=== PATIENT | female | born 1950 | race Caucasian/White ===

== ENCOUNTER → 2020-08-30 08:29 | Outpatient (BNVA) | payer MEDICARE, SELFPAY | PROVIDERS: PCP Internal Medicine; Visit Provider Hospitalist | DX: J44.9 Chronic obstructive pulmonary disease, unspecified (principal); K44.9 Diaphragmatic hernia without obstruction or gangrene; R91.8 Other nonspecific abnormal finding of lung field | CPT/HCPCS: 99202 ==

== ENCOUNTER 2020-09-20 09:31 | Outpatient (REF) | payer MEDICARE, SELFPAY ==
--- NOTE | ~2020-09-20 | CT_ITS ---
EXAMINATION: CT CHEST SCREENING CLINICAL INFORMATION: Personal history of nicotine dependence. COMPARISON: None. TECHNIQUE: Multidetector volumetric CT imaging of the chest is performed without contrast using low-dose technique. Additional 2-D coronal and sagittal reformatted images and axial 3-D maximum intensity projection (MIP) images are generated on the CT workstation. This CT examination was performed using dose optimization techniques as appropriate, variously including the following: *Automated exposure control *Adjustment of mA and/or kV according to patient size (this includes techniques or standardized protocols for targeted exams where dose is matched to indication/reason for exam; i.e. extremities or head) *Use of iterative reconstruction technique DLP: 47 mGy-cm FINDINGS: LUNGS: The lungs are well expanded and clear of acute pneumonic process. There is a 2 mm calcified nodule right upper lobe axial image 141/5. No additional nodules seen. There is patchy ground-glass opacity both lower lobes and right lower lobe. MEDIASTINUM: The thyroid lobes are symmetrical and normal. The central trachea and bronchi are widely patent. Heart size and the great vessels are normal caliber. There is atherosclerotic calcification of the aortic arch. No abnormal sized mediastinal or hilar lymph nodes seen. There is no pericardial effusion. PLEURA: There is no pleural effusion. No pleural mass or thickening. AXILLA: No lymphadenopathy. UPPER ABDOMEN: Visualized liver, spleen, pancreas, and bilateral adrenal glands are unremarkable. The gallbladder has been surgically removed. OSSEOUS STRUCTURES: Mild degenerative ventral spondylosis. No lytic or sclerotic process. CT/CT lung screening IMPRESSION: Unremarkable examination. ASSESSMENT: Lung-RADS category 2: Benign. RECOMMENDATION: Low-dose annual CT chest.
== END 2020-09-20 09:32 | disposition home or self-care (01) ==
LOC: HO.CT 09:31
PROVIDERS: Visit Provider Physician Assistant Medical
DX: Z12.2 Encounter for screening for malignant neoplasm of respiratory organs (principal); Z87.891 Personal history of nicotine dependence
CPT/HCPCS: 71271

== ENCOUNTER 2020-10-15 10:52 | Outpatient (REF) | payer MEDICARE, SELFPAY ==
--- NOTE | 2020-10-15 14:36 | PFT_ITS ---
Forced vital capacity, FEV1, LNG18-05 are normal. MVV is slightly decreased. Post bronchodilator therapy, there is a significant increase in HWM93-76. No other change. Total lung capacity and residual volume are slightly decreased. Diffusion capacity slightly decreased. CONCLUSION: Mild restrictive pulmonary disorder. No significant obstructive disorder, but there is an accelerated response to bronchodilator therapy as shown by increased DRK51-25. This may indicate a mild bronchospastic component. Clinical correlation is recommended. Jasmin Cleveland MD MSHa[facility]/MOD[facility] / [id number]
== END 2020-10-15 10:53 | disposition home or self-care (01) ==
LOC: HO.RESP 10:52
PROVIDERS: PCP Internal Medicine; Visit Provider Hospitalist
DX: J44.9 Chronic obstructive pulmonary disease, unspecified (principal)
CPT/HCPCS: 94060; 94727; 94729

== ENCOUNTER → 2020-11-11 10:15 | Outpatient (BNVA) | payer MEDICARE, SELFPAY | PROVIDERS: PCP Internal Medicine; Visit Provider Hospitalist | DX: J44.9 Chronic obstructive pulmonary disease, unspecified (principal); K44.9 Diaphragmatic hernia without obstruction or gangrene; J98.4 Other disorders of lung; R91.8 Other nonspecific abnormal finding of lung field | CPT/HCPCS: 99212 ==

== ENCOUNTER → 2021-02-24 09:42 | Outpatient (BNVA) | payer MEDICARE, SELFPAY | PROVIDERS: PCP Internal Medicine; Visit Provider Hospitalist | DX: J44.9 Chronic obstructive pulmonary disease, unspecified (principal); R91.8 Other nonspecific abnormal finding of lung field; J98.4 Other disorders of lung; Z87.891 Personal history of nicotine dependence | CPT/HCPCS: 99212 ==

== ENCOUNTER 2024-08-26 12:21 | Outpatient (AMB) | payer MEDICARE, MEDICAID, SELFPAY ==
--- NOTE | 2024-08-26 12:35 | A.OFFVIS_ITS ---
Intake Visit Reasons: 6m AD Allergies morphine Allergy (Severe, Verified 02/24/21 10:02) hallucination HPI Comments Details: 74 years old woman probably with dementia probably with Lewy bodies. In some ways she was better with medicines but she also was having difficulty walking. She had bilateral knee replacement and was also complaining of pain. Bladder control is ok. Sometimes she was having hallucinations. [facility] Medical History (Updated 08/26/24 @ 12:40 by Erinn Parisi MD) GERD (gastroesophageal reflux disease) Dementia with Lewy bodies Alzheimer's dementia Chronic restrictive lung disease Shoulder pain Neck pain COVID-19 Hiatal hernia Pulmonary nodules Asthma-COPD overlap syndrome Family History (Updated 08/30/20 @ 20:01 by Joshua Marcelo MD) Other HTN (hypertension) Social History (Updated 08/30/20 @ 08:40 by Leana Johnson [facility]) Patient Tobacco Use Status: Former Tobacco user Tobacco use type: Cigarette Years Smoked: 15 years Review of Systems Const Details: Constitutional:?No fever, chills, fatigue, weight loss, or night sweats. HEENT:?No headache, vision changes, hearing loss, nasal congestion, sore throat. Neurological:? Hallucinations and difficulty walking Psychiatric:? Complaining of hallucinations Endocrine:?No heat/cold intolerance, polydipsia, polyuria, or hair/skin changes. Hematologic/Lymphatic:?No easy bruising, bleeding, or lymphadenopathy. Integumentary (Skin):?No rash, lesions, itching, or color changes. ? Physical Exam Neuro Other: Mental Status: Alert and oriented to person, place, and time. Normal attention. Normal spontaneous speech, fluency, and comprehension. No obvious issues with mood and memory. Affect is appropriate. Cranial Nerves: CN II: Visual carney full to confrontation, visual acuity intact. CN III, IV, : Pupils equal, round, reactive to light and accommodation. Extraocular movements are normal. CN V: Facial sensation is normal. CN VII: Facial movements symmetrical. CN VIII: Hearing intact to bedside conversation is normal. CN IX, X: Palate elevates symmetrically. CN XI: Shoulder shrug and head turn symmetrical. CN XII: Tongue midline without atrophy or fasciculations. Slow and cautious walking with a cane. Extrapyramidal: Full facial expressions and blinking. No rigidity. Movements are appropriate with no tremor or abnormality. Speech: Normal; no dysarthria or tremor. Assessment & Plan Assessment & Plan (1) Dementia with Lewy bodies: Code(s): G31.83 - Neurocognitive disorder with Lewy bodies; F02.80 - Dementia in other diseases classified elsewhere, unspecified severity, without behavioral disturbance, psychotic disturbance, mood disturbance, and anxiety Category: Medical Qualifiers: Dementia severity: moderate Dementia behavioral or psychological symptom: with mood disturbance Qualified Code(s): G31.83 - Neurocognitive disorder with Lewy bodies; F02.B3 - Dementia in other diseases classified elsewhere, moderate, with mood disturbance Plan Impression: Dementia with Lewy body disease Recommendations: 1. Memantine 5 mg twice a day 2. Sertraline 25 mg a day 3. Quetiapine 25 mg to twice a day 4. Trazodone 50 mg 1 at bedtime 4. Try to use a walker Coding Level of Care Code Est Pt Level 4 (48541) Diagnoses Moderate Lewy body dementia with mood disturbance G31.83; F02.B3 Dementia severity: moderate Dementia behavioral or psychological symptom: with mood disturbance
--- OUTSIDE RECORDS SUMMARY | 2024-08-26 13:31 | XMS_ITS | Patient Health Record ---
[facility] Address [address] [place] [address] Care Team Providers Care Reclamation Supervisor Name Role Phone Carina MONTEJO, [facility] Primary Care Provider Unavailab Glenn Lucero Unavailable [phone] Allergies Allergen (clinical drug ingredient) Drug/Non Drug Allergy documented on EMR Reaction Allergy Type Onset Date Status Codeine Phosphate Unknown Drug Allergy Active morphine Morphine Sulfate Unknown Drug Allergy Active Reason For Referral No Information Medications Medication SIG (Take, Route, Frequency, Duration) Notes Start Date End Date Status glipiZIDE 5 MG TK 1 T PO QD Oral; Duration: 90 Active Extra Depth Orthopedic Shoes (1 Pair) with Customized Heat Molded Multidensity Innersoles (3 Pair) as directed Dx: NIDDM (E11.9), Hammertoe Foot Deformity (M20.41,M20.42), Preulcerative Skin Lesion(s) (L85.1) 06/11/2019 Active FreeStyle Control Solution - USE TO CALIBRATE EACH NEW BOTTLE OF TEST STRIPS In Vitro; Duration: 30 Active Ketoconazole 2 % APPLY SPARINGLY TO R ALVARO ON LOWER ABDOMEN BID UNTIL CLEAR External; Duration: 15 Active Fluzone High-Dose 0.5 ML ADM 0.5ML IM UT D Intramuscular; Duration: 1 Activ e Probiotic Daily - TK 1 C PO D Oral; Duration: 60 Active Ezetimibe 10 MG TK 1 T PO ONCE D Ora l; Duration: 30 Active Polyethylene Glycol 3350 - MIX AND DRINK 17 GRAMS OF POWDER WITH 6OZ OF CLEAR LIQUID ONCE DAILY Oral; Duration: 30 Active DOK 100 MG Oral; Duration: 20 Active Pantoprazole Sodium 40 MG TK 1 T PO QD A FTER SURGERY Oral; Duration: 30 Active Fluocinonide 0.05 % APPLY SPARINGLY TO PSORIASIS ON TRUNK AND EXTREMITIES BID PRN External; Duration: 25 Active Aspirin EC 325 MG TK 1 T PO BID STARTI NG AFTER SURGERY Oral; Duration: 30 Active Naproxen 500 MG TK 1 T PO BID WITH M EALS Oral; Duration: 30 Active Loratadine 10 MG TK 1 T PO QD Oral; Duration: 90 Active Citalopram Hydrobromide 20 MG TK 1 T PO QAM Oral; Duration: 30 Active Otezla 30 MG TK ONE T PO ONCE OR BID Oral; Duration: 30 Active Celecoxib 200 MG Oral; Duration: 15 Active Omeprazole 20 MG TK ONE C PO QD Oral; Duration: 30 Active Social History Tobacco Use: Social History Observation Description Date Details (start date - stop date) Never Smoker NA - NA Tobacco Use/Smoking Question Answer Notes Are you a: nonsmoker Additional Findings: Tobacco Non-User Current no n-smoker Alcohol Screen Question Answer Notes Did you have a drink containing alcohol in the p ast year? No Points 0 Interpretation Negative Tobacco use other than smoking: Question Answer Notes Are you an other tobacco user? No Problems Problem Type SNOMED Code ICD Code Onset Dates Problem Status W/U Status Risk Notes Problem Tinea unguium (654533959) Tinea unguium (B35.1) Active confirmed Problem Type II diabetes mellitus without complication (100030180) Type 2 diabetes mellitus without complications (E11.9) Active confirmed Plan Of Treatment Pending Test Test Name Order Date [id number] NAIL, 6 OR MORE 06/11/2019 [id number] SKIN LESIONS, 2 TO 4 06/11/19 20 Insurance Providers Payer Name Payer Address Payer Phone Subscriber Number Group Number Insured Name Patient Relationship to Insured Coverage Start Date Coverage End Date [facility] [employer] Claims [address] [place] [phone] [id number] Monika Almaraz Self - patient is the insured Medical (General) History Medical History History ICD Code Arthritis Back,Hip,and Knee pain Depression Diabetes mellitus Diverticulosis Joint implants/screws Liver disease Lung disease Psoriasis Replacement Heart Valves Sinus conditions Surgical History Surgery Date(Month/Year) knee replacement 2018 Hospitalization History Reason Date(Month/Year) knee surgery 2018
--- OUTSIDE RECORDS SUMMARY | 2024-08-26 13:32 | XMS_ITS | Clinical Summary ---
Author Organization [address] [facility] Address [address] [place] [address] Phone Care Team Providers Care Blow Machine Tender Starch Spraying Name Role Phone Yamil Stone MD Primary Care Provider [phone] Allergies Active Allergy Reactions Criticality Noted Date Comments Latex 11/01/2021 Morphine Hallucinations 12/18/2016 Medications DIABETIC SUP[facility], [facility]. [facility] Swabs (Comfort Touch Alcohol Prep) 70 % Pads- USE DIRECTED TO TEST BLOOD SUGAR DAILY 4 Active mirtazapine (REMERON) 15 mg tablet TAKE 1 TABLET BY MOUTH EVERY DAY NIGHTLY 4 Active QUEtiapine (SEROquel) 25 mg tablet Take 1 tablet (25 mg total) by mouth 2 (two) times a day. Active sertraline (ZOLOFT) 25 mg tablet Take 1 tablet (25 mg total) by mouth 1 (one) time each day. Active SAFETY LANCETS MISC Lancets (Safety Lancet 30G/Pressure Act) Misc- USE TO CHECK BLOOD SUGAR ONCE DAILY FASTING. E11.9 4 Active citalopram (CeleXA) 40 mg tablet Take 1 tablet (40 mg total) by mouth 1 (one) time each day. 4 Active blood sugar diagnostic (FreeStyle Lite Strips) test strip USE TO CHECK BLOOD SUGAR ONCE DAILY FASTING. E11.9 4 Active glipiZIDE (GLUCOTROL) 5 mg tablet Take 1 tablet (5 mg total) by mouth 1 (one) time each day. 3 Active ipratropium-alb uteroL (Combivent Respimat) 20-100 mcg/actuation inhaler INHALE 1 PUFF INTO THE LUNGS 4 TIMES DAILY NEEDED (SHORTNESS OF BREATH OR WHEEZING) FOR UP TO 30 DAYS. THIS IS A RESCUE OR EMERGENCY MEDICATION. NO MAINTEANCE 3 Active bisacodyL (DULCOLAX) 5 mg EC tablet Take 2 tablets by mouth right before your first dose of liquid prep. 3 Active aspirin 81 mg EC tablet Take 1 tablet (81 mg total) by mouth 1 (one) time each day. 2 Active fluocinonide (LIDEX) 0.05 % cream Apply sparingly to psoriasis on trunk and extremities BID PRN 2 Active umeclidinium-vi lanteroL (Anoro Ellipta) 62.5-25 mcg/actuation inhaler Inhale 1 puff by mouth 1 (one) time each day. 2 Active baclofen (LIORESAL) 10 mg tablet Take 1 tablet (10 mg total) by mouth 3 (three) times a day. 1 Active tiZANidine (ZANAFLEX) 4 mg tablet Take 1 tablet (4 mg total) by mouth as needed for muscle spasms. 1 Active blood-glucose meter kit Use to check blood sugar once daily fasting. E11.9 1 Active polyethylene glycol (Miralax) 17 gram/dose oral powder Take 17 g by mouth 1 (one) time each day. 1 Active apremilast (Otezla) 30 mg tablet Take 30 mg by mouth 2 (two) times a day. 1 Active pravastatin (PRAVACHOL) 80 mg tablet TAKE 1/2 TABLETS BY MOUTH DAILY. 45 tablet 2 5 Active folic acid (FOLVITE) 800 mcg tablet Take 0.5 tablets (400 mcg total) by mouth 1 (one) time each day. 30 tablet 2 5 Active loratadine (CLARITIN) 10 mg tablet TAKE 1 TABLET BY MOUTH DAILY. 28 tablet 1 5 Active omeprazole (PriLOSEC) [address] capsule TAKE 1 CAPSULE BY MOUTH DAILY. 28 capsule 1 5 Active clotrimazole-be tamethasone (LOTRISONE) 1-0.05 % cream Apply twice a day on the rash for 7 days 45 g 1 5 Active Alcohol Prep Pads pads, medicated USE DIRECTED TO TEST BLOOD SUGAR DAILY 100 each 1 5 Active Active Problems Problem Noted Date Diagnosed Date Shoulder pain, left 01/19/2021 Spondylolisthesis at L4-L5 level 09/04/2019 Atelectasis 06/19/2019 Chronic obstructive pulmonar y disease ([facility] V24, [facility] V28) 06/19/2019 Overview (12/31/2023): Last Assessment & Plan: Mild COPD as evidenced on CT scan. Continue using Anoro/Ellipta and albuterol as needed Pulmonary nodules 06/19/2019 Overview (12/31/2023): Last Assessment & Plan: No need for follow-up with solitary pulmonary nodule of 4 mm in a non-smoker Anxiety 10/24/2018 Chronic back pain 10/03/2018 Splenic artery aneurysm ([facility] V24) 12/10/2017 Diabetes mellitus type 2, un complicated ([facility] V24, [facility] V28) 12/04/2017 GERD (gastroesophageal reflux disease) 8 Hyperlipidemia 12/04/2017 Encounters Date Type Department Care Team Description 07/21/2024 3:00 PM EDT Office Visit Internal Medicine [address] [address] Yamil Stone MD Psoriasiform dermatitis (Primary Dx) 07/21/2024 Telephone Internal Medicine [address] [phone] Yamil Stone MD faxed order (L&C) 07/15/2024 Telephone Internal Medicine [address] [phone] Yamil Stone MD 07/04/2024 Telephone Internal Medicine [address] [phone] Yamil Stone MD Fax([facility]) 06/11/2024 Telephone Internal Medicine - [place] [address] [place] [phone] Ena Mujica [place] faxed form ([facility]) from Last 3 Months Immunizations Name Administration Dates Next Due Pfizer SARS-CoV-2 COVID-19, mRNA, LNP-S, preservative free 05/06/2021,09/21/2020,08/31/2020 Medical History Medical History Date Comments Diabetes mellitus type 2, uncomplicated (CMS/HCC V24, CMS/HCC V28) 12/04/2017 DX:Diabetes mellitus type 2, uncomplicated ([facility]) Hyperlipidemia 12/04/2017 DX:Hyperlipidemi a GERD (gastroesophageal reflux disease) 8 DX:GERD (gastroesophageal reflux disease) Family History Relation Name Status Comments Father Mother Social History Tobacco Use Types Packs/Day Years Used Date Smoking Tobacco: Former Smokeless Tobacco: Never Alcohol Use Standard Drinks/Week Comments Yes 0 (1 standard drink = 0.6 oz pur e alcohol) Comments Unknown Sex and Gender Information Value Date Recorded Sex Assigned at Not on file Legal Sex Female 8:26 PM EST Gender Identity Not on file Sexual Orientation Not on file Obstetrics History Last Filed Vital Signs Vital Sign Reading Time Taken Comments Blood Pressure 128/80 07/21/2024 3:11 PM EDT Pulse 72 07/21/2024 3:11 PM EDT Temperature 35.9 C (96.7 F) 07/21/2024 3:11 PM EDT Respiratory Rate - - Oxygen Saturation 98% 07/21/2024 3:11 PM EDT Inhaled Oxygen Concentration - - Weight 70.8 kg (156 lb) 07/21/2024 3:11 PM EDT Height 157.5 cm (5' 2 ) 04/26/2023 3:20 PM EDT Body Mass Index 28.53 04/26/2023 3:20 PM EDT Plan of Treatment Upcoming Encounters Date Type Department Care Team (Late st Contact Info) Description 01/02/2025 11:15 AM EST Office Visit Internal Medicine - [place] [address] [place] [phone] Yamil Stone MD [address] [address] Health Maintenance Due Date Last Done Comments Breast Cancer Screening 1950 Diabetes: Annual Foot Exam 1962 Diabetes: Annual Retina Eye Exam 1962 Zoster Vaccines (1 of 2) 2002 Pneumococcal Vaccine: 50+ Years (2 of 2 - PCV) 03/15/2005 03/15/2004, 03/15/2004 RSV Immunization Adult Patients (1 - Risk 60-74 years 1-dose series) 2012 DTaP,Tdap,and Td Vaccines (3 - Td or Tdap) 05/22/2021 05/23/2011, 12/25/2000 Colorectal Cancer Screening: Stool Based Tests (FOBT/FIT) 01/20/2022 Depression Screening 01/20/2022 Hepatitis C Screening 01/20/2022 Medicare Annual Wellness Visit 01/20/2022 Osteoporosis Screening (Bone Density Screening) 01/20/2022 Social Influencers of Health Screening 01/20/2022 Diabetes: Annual Urine Albumin-Creatinine Ratio (uACR) 01/24/2022 07/21/2019 Diabetes: Blood Sugar Control Test (HGBA1C) 02/06/2023 08/07/2022 Diabetes: Annual GFR (Glomerular Filtration Rate) 08/08/2023 08/07/2022 COVID-19 Vaccine ( season) 2023 05/06/2021, 09/21/2020, 08/31/2020 Falls Risk Assessment 04/25/2024 04/26/2023 Influenza Vaccine (#1) 2024 , 11/15/2011, 10/13/2010, Additional history exists Cholesterol Screening (Lipid Panel) 08/08/2027 08/07/2022 Hepatitis B Vaccines Aged Out 2003 No long er eligible based on patient's age to complete this topic HIB Vaccines Aged Out No longer eligi ble based on patient's age to complete this topic HPV Vaccines Aged Out No longer eligi ble based on patient's age to complete this topic Hepatitis A Vaccines Aged Out No long er eligible based on patient's age to complete this topic IPV Vaccines Aged Out No longer eligi ble based on patient's age to complete this topic MMR Vaccines Aged Out No longer eligi ble based on patient's age to complete this topic Meningococcal ACWY Vaccine Aged Out N o longer eligible based on patient's age to complete this topic Meningococcal B Vaccine Aged Out No l onger eligible based on patient's age to complete this topic RSV Immunization Patients Under 20 months Aged Out No longer eligible based on patient's age to complete this topic Varicella Vaccines Aged Out No longer eligible based on patient's age to complete this topic Procedures Procedure Name Priority Date/Time Associated Diagnosis Comments FALLS RISK ASSESSMENT Routine 04/26/2023 ANNUAL BMP BLOOD TEST Routine 08/07/2022 HEMOGLOBIN A1C Routine 08/07/2022 LIPID PANEL Routine 08/07/2022 URINE ALBUMIN CREATININE RATIO Routine 07/21/2019 from Last 3 Months or Most Recently Relevant to Health Maintenance Results * Falls Risk Assessment (04/26/2023) [facility] Falls Risk Assessment abstracted [facility] Provider HEALTH MAINTENANCE Final Result * Annual BMP Blood Test (08/07/2022) [facility] Annual BMP Blood Test abstracted [facility] Provider HEALTH MAINTENANCE Final Result * (ABNORMAL) Hemoglobin A1c (08/07/2022) [facility] Hemoglobin A1C 6.9(A) <=6.5 % Blood Venous blood specimen / Unknown Historical Provider LAB BLOOD ORDERABLES Marcia l Result * (ABNORMAL) Lipid panel (08/07/2022) [facility] LDL/HDL Ratio 4 0 - 4 Triglycerides 140 0 - 150 mg/dL Cholesterol 180 0 - 200 mg/dL HDL 47 >=40 mg/dL LDL Cholesterol 105(A) 0 - 100 mg/dL Blood Venous blood specimen / Unknown Historical Provider LAB BLOOD ORDERABLES Marcia l Result * HM Urine Albumin Creatinine Ratio (07/21/2019) Urine Albumin Creatinine Ratio abstracted Historical Provider HEALTH MAINTENANCE Final Result from Last 3 Months or Most Recently Relevant to Health Maintenance Insurance [address] [place] [address] MEDICARE MEDICAID - [place] Advance Directives Documents on File Type Date Recorded 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
== END 2024-08-26 12:50 | disposition home or self-care (01) ==
PROVIDERS: PCP Internal Medicine; Visit Provider Psychiatry & Neurology Neurology
DX: G31.83 Neurocognitive disorder with Lewy bodies (principal); F02.B3 Dementia in other diseases classified elsewhere, moderate, with mood disturbance
CPT/HCPCS: 99214

== ENCOUNTER → 2024-08-26 12:21 | Outpatient (BNVA) | payer MEDICARE, MEDICAID, SELFPAY | PROVIDERS: PCP Internal Medicine; Visit Provider Psychiatry & Neurology Neurology | DX: G31.83 Neurocognitive disorder with Lewy bodies (principal); F02.B3 Dementia in other diseases classified elsewhere, moderate, with mood disturbance | CPT/HCPCS: 99212 ==